=== PATIENT | female | born 1950 | race Caucasian/White ===

== ENCOUNTER 2018-03-30 15:40 | Inpatient (IN) | payer MEDICARE, OTHER ==
[2018-03-30 19:52] LABS: ADD MAN DIFF? NO
[2018-03-30 19:53] LABS: WHITE BLOOD COUNT 5.1 10^3/ul (4.8-10.8)
[2018-03-30 19:53] LABS: BASOPHILS % 0.6 % (0.0-2.0); EOSINOPHILS % 0.6 % (0.0-7.0); LYMPHOCYTES # 1.4 10^3/ul (0.8-2.9); MEAN CORPUSCULAR HEMOGLOBIN 31.9 pg (29.0-33.0); MEAN CORPUSCULAR HGB CONC 33.3 g/dl (32.0-37.0); MEAN CORPUSCULAR VOLUME 95.7 fl (82.0-101.0); MEAN PLATELET VOLUME 9.6 fl (7.4-10.4); MONOCYTE # 0.6 10^3/ul (0.3-0.9); MONOCYTES % 12.4 % (0.0-11.0); NEUTROPHILS % 59.2 % (39.0-77.0); PLATELET COUNT 191 10^3/UL (140-415); RED BLOOD COUNT 4.39 10^6/ul (4.20-5.40); RED CELL DISTRIBUTION WIDTH 12.5 % (11.5-14.5)
[2018-03-30] MEDS: ONDANSETRON 4 MG INJ IV (19:54)
[2018-03-30] MEDS: HYDROmorphONE 1 MG/ML SYG IV (19:55)
[2018-03-30] MEDS: SOD CHLORIDE 0.9% 500 ML IV (19:55)
[2018-03-30 20:10] LABS: ANION GAP 9 (5-13); BLOOD UREA NITROGEN 10 mg/dl (7-20); CALCIUM 9.2 mg/dl (8.4-10.2); CARBON DIOXIDE 24 mmol/L (21-31); CHLORIDE 107 mmol/L (97-110); CREATININE 0.57 mg/dl (0.44-1.00); Estimated GFR > 60 mL/min (>60); GLUCOSE 119 mg/dl (70-220); POTASSIUM 3.5 mmol/L (3.5-5.1); SODIUM 140 mmol/L (135-144)
[2018-03-30 20:13] LABS: INR 0.97
[2018-03-30 20:14] LABS: PARTIAL THROMBOPLASTIN TIME 27.7 Sec (23.0-35.0)
[2018-03-30 20:21] LABS: TROPONIN-I < 0.012 ng/ml (0.000-0.120)
[2018-03-30 20:51] LABS: ADD UMIC YES; UR ASCORBIC ACID 20 mg/dL (NEGATIVE); UR BACTERIA FEW /HPF (NONE SEEN); UR BILIRUBIN (Dip) NEGATIVE (NEGATIVE); UR BLOOD (Dip) NEGATIVE (NEGATIVE); UR CLARITY CLOUDY (CLEAR); UR COLOR YELLOW (YELLOW); UR GLUCOSE (Dip) NEGATIVE (NEGATIVE); UR KETONES (Dip) NEGATIVE (NEGATIVE); UR LEUKOCYTE ESTERASE (Dip) 2+ Leu/ul (NEGATIVE); UR NITRITE (Dip) NEGATIVE (NEGATIVE); UR RBC 5 /HPF (0-5); UR SPECIFIC GRAVITY (Dip) 1.014 (1.003-1.030); UR SQUAMOUS EPITHELIAL CELL MANY /HPF (FEW); UR TOTAL PROTEIN (Dip) NEGATIVE (NEGATIVE); UR UROBILINOGEN (Dip) 1+ mg/dL (NEGATIVE); UR WBC 69 /HPF (0-5)
[2018-03-30] MEDS ORDERED: ONDANSETRON 4 MG INJ IV ×2 (21:30)
[2018-03-30] MEDS ORDERED: ACETAMINOPHEN 325 MG TAB PO ×2 (21:30)
[2018-03-30] MEDS ORDERED: NACL 0.9% 3 ML SYG IV (21:30)
[2018-03-30] MEDS ORDERED: NITROGLYCERIN (SL) 0.4 MG TAB SL (21:30)
[2018-03-31] MEDS ORDERED: morphine SULFATE/PF (2 MG/2 ML) SYG IV
[2018-03-31] MEDS: APIXABAN 5 MG TABLET PO ×3 (00:08→20:40)
[2018-03-31] MEDS: CEFTRIAXONE 1 GM/50 ML (PMX) 50 ML IVPB ×2 (00:09→20:40)
[2018-03-31] MEDS: SOD CHLORIDE 0.9% 1,000 ML IV ×2 (00:10→08:58)
[2018-03-31] MEDS: NAPROXEN 500 MG TAB PO ×3 (00:50→20:40)
[2018-03-31 03:50] LABS: ADD MAN DIFF? NO
[2018-03-31 03:58] LABS: BASOPHILS % 0.5 % (0.0-2.0); EOSINOPHILS # 0.1 10^3/ul (0.0-0.5); EOSINOPHILS % 1.2 % (0.0-7.0); HEMATOCRIT 37.9 % (37.0-47.0); HEMOGLOBIN 12.4 g/dl (12.0-16.0); LYMPHOCYTES # 1.4 10^3/ul (0.8-2.9); LYMPHOCYTES % 33.6 % (15.0-51.0); MEAN CORPUSCULAR HGB CONC 32.7 g/dl (32.0-37.0); MEAN CORPUSCULAR VOLUME 97.9 fl (82.0-101.0); MEAN PLATELET VOLUME 9.4 fl (7.4-10.4); MONOCYTE # 0.5 10^3/ul (0.3-0.9); MONOCYTES % 11.9 % (0.0-11.0); NEUTROPHIL # 2.1 10^3/ul (1.6-7.5); NEUTROPHILS % 52.1 % (39.0-77.0); PLATELET COUNT 162 10^3/UL (140-415); RED BLOOD COUNT 3.87 10^6/ul (4.20-5.40); RED CELL DISTRIBUTION WIDTH 12.6 % (11.5-14.5)
[2018-03-31 04:11] LABS: ALANINE AMINOTRANSFERASE 20 IU/L (13-69); ALBUMIN 3.2 g/dl (3.3-4.9); ALKALINE PHOSPHATASE 104 IU/L (42-121); ANION GAP 5 (5-13); ASPARTATE AMINO TRANSFERASE 23 IU/L (15-46); BILIRUBIN,INDIRECT 0.1 mg/dl (0-1.1); BILIRUBIN,TOTAL 0.1 mg/dl (0.2-1.3); BLOOD UREA NITROGEN 12 mg/dl (7-20); CALCIUM 8.8 mg/dl (8.4-10.2); CARBON DIOXIDE 27 mmol/L (21-31); CHLORIDE 110 mmol/L (97-110); CHOL/HDL RATIO 2.6 RATIO; CHOLESTEROL 105 mg/dl (100-200); CREATININE 0.64 mg/dl (0.44-1.00); Estimated GFR > 60 mL/min (>60); GLUCOSE 95 mg/dl (70-220); HDL CHOLESTEROL 40 mg/dl (33-92); LDL CHOLESTEROL,CALCULATED 51 mg/dl; SODIUM 142 mmol/L (135-144); TOTAL PROTEIN 6.1 g/dl (6.1-8.1); TRIGLYCERIDES 72 mg/dl (0-149)
[2018-03-31 04:12] LABS: CREATINE KINASE 64 IU/L (23-200)
[2018-03-31 04:24] LABS: CK-MB 0.62 ng/ml (0.0-2.4); TROPONIN-I < 0.012 ng/ml (0.000-0.120)
[2018-03-31 04:31] LABS: HEMOGLOBIN A1C 5.8 % (0-5.9)
[2018-03-31] MEDS: PANTOPRAZOLE (EC) 40 MG TAB PO (05:53)
[2018-03-31] MEDS: HYDROCODONE/APAP (10/325) TAB PO (08:58)
[2018-03-31 11:48] LABS: CREATINE KINASE 87 IU/L (23-200)
[2018-03-31 12:01] LABS: CK INDEX 0.8; CK-MB 0.71 ng/ml (0.0-2.4); TROPONIN-I < 0.012 ng/ml (0.000-0.120)
[2018-03-31] MEDS: ATORVASTATIN 10 MG TAB PO (20:40)
[2018-04-01] MEDS: PANTOPRAZOLE (EC) 40 MG TAB PO (05:48)
[2018-04-01] MEDS: APIXABAN 5 MG TABLET PO (08:51)
[2018-04-01] MEDS: NAPROXEN 500 MG TAB PO (08:51)
[2018-04-01] MEDS ORDERED: KETOROLAC 15 MG INJ IV (14:00)
== END 2018-04-01 16:22 | disposition home or self-care (01) | DRG 312 ==
LOC: E/R 15:40 → 6WM 21:15
DX: R55 Syncope and collapse (principal); N39.0 Urinary tract infection, site not specified; M79.18 Myalgia, other site; E78.5 Hyperlipidemia, unspecified; S20.219A Contusion of unspecified front wall of thorax, initial encounter; W18.30XA Fall on same level, unspecified, initial encounter
CPT/HCPCS: 36415; 70450; 70553; 71045; 71100; 73030-RT; 80048; 80053; 80061; 81001; 82550; 82553; 83036; 83735; 84443; 84484; 85025; 85610; 85730; 93005; 93306; 93880; 96374; 96375; 99285-25; G0378